=== PATIENT | female | born 1990 | race Caucasian/White ===

== ENCOUNTER 2021-12-24 14:26 | Emergency (ER) | payer BC ==
[2021-12-24 15:34] LABS: #Basophils 0.1 thou/uL (0.0-0.2); #Eosinphils 0.5 thou/uL (0.0-0.7); #Lymphocytes 1.7 thou/uL (1.20-3.40); #Monocytes 0.4 thou/uL (0.11-0.59); #Neutrophils 5.4 thou/uL (1.40-6.50); %Basophils 0.7 % (0.0-1.0); %Eosinophils 6.3 % (0.0-10.0); %Lymphocytes 21.3 % (21.0-51.0); %Monocytes 5.1 % (0.0-10.0); %Neutrophils 66.6 % (42.0-75.0); Hemoglobin 11.7 g/dL (12.0-16.0); Mean Corpuscular HGB CONC 32.1 g/dL (32.0-36.0); Mean Corpuscular Volume 93.6 fL (78.0-98.0); Mean Platelet Volume 12.5 fL (7.4-10.4); Platelet Count 134 thou/uL (130-400); Red Blood Cell (RBC) Count 3.88 mill/uL (4.20-5.40); White Blood Cell (WBC) Count 8.1 thou/uL (4.8-10.8)
[2021-12-24 15:35] LABS: Hypochromia SLIGHT = 6-15 cells (100X) (0-5/hpf); MDiff Complete? YES; Platelet Morphology Comment Appears Adequate
== END 2021-12-24 16:40 | disposition home or self-care (01) ==
LOC: MADERS 14:26
DX: O20.9 Hemorrhage in early pregnancy, unspecified (principal); Z87.891 Personal history of nicotine dependence; Z3A.08 8 weeks gestation of pregnancy
CPT/HCPCS: 36415; 85025; 86900; 86901; 90384; 96372; 99284

== ENCOUNTER 2025-08-23 09:08 | Emergency (ER) | payer BC ==
[2025-08-23] MEDS ORDERED: Ketorolac Tromethamine 30 MG (1 mL) VIAL ONE (10:30)
== END 2025-08-23 10:50 | disposition home or self-care (01) ==
LOC: MADERS 09:08
DX: J20.9 Acute bronchitis, unspecified (principal); Z87.891 Personal history of nicotine dependence
CPT/HCPCS: 96372; 99283; J1885